=== PATIENT | male | born 1950 | race Caucasian/White ===

== ENCOUNTER 2017-02-15 07:47 | Observation (INO) | payer OTHER ==
[~2017-02-15] VITALS: Ht 175.3 cm; Wt 108.9 kg
--- NOTE | ~2017-02-15 | CATHLAB ---
[facility] [address] [place] [address] INVASIVE PROCEDURE REPORT Name: RACHELJHON Room #: 209-P [facility] IN ..#: [id number] Admission: 02/15/17 Attend Phys: Bruce Montesinos, Discharge: Date of : 54 Date of Service: 02/15/17 1704 Report #: [id number] THIS REPORT FOR: //name// APPROVED REPORT Patient Details Patient Status: Out-Patient Room #: The patient is a 66 year-old male Event Personnel Bruce Montesinos Electric Organ Checker, Anuja Cheng, Francia Aguero Penny, Wes RN, Josias Alaniz RN flanging roll operator Performed Art Access - R femoral artery* 91004 Initial Mod Sed Same Phys/QHP Gr5y [id number] 56599 Mod Sed Same Phys/QHP Ea 234914 Left Heart Cath w/or w/o Coronaries [id number] [facility] Place w/wo Plasty Single LAD 230524 Hemostasis w/ Mynx Procedure Narrative The patient was brought electively to the Cardiac Catheterization Laboratory and was prepped and draped in a sterile manner. The Right Groin^ was infiltrated with 1% Lidocaine subcutaneous anesthesia. A PINNACLE 6FR Sheath #[id number] sheath was inserted into the RFA^. Coronary angiography was performed using coronary diagnostic catheters. The right coronary system was accessed and visualized with a JR 4 catheter. The left coronary system was accessed and visualized with a JL 4 catheter. The left ventricle was accessed and visualized with a Pigtail catheter. Left ventricular/Aortic Valve gradient assessed via catheter pullback. Left ventriculogram was performed in [place] projection. Closure device was deployed with a 6 Fr Mynx. The patient tolerated the procedure well and there were no complications associated with the procedure. There was no hematoma. Intraoperative Conscious Sedation Sedation start time: 10:01 Case end Time: 10:45 Versed 1.5 mg Fluoro Time: 6.56 minutes Dose: DAP 9001.00 cGycm2 1078 mGy Contrast Type and Amount: Omnipaque 225 ml Coronary Angiography [address] [address] INVASIVE PROCEDURE REPORT Name: JHON RAMOS Room #: 209-P [facility].#: [id number] Admission: 02/15/17 Attend Phys: Bruce Montesinos, Discharge: Date of : 54 Date of Service: 02/15/17 1704 Report #: [id number] The patient's coronary anatomy is right dominant. Diagnostic Cath Left Main Normal LAD Mild proximal plaquing. Critical 99% mid LAD stenosis Diagonal 1 mild proximal plaquing Diagonal 2 small, mid-vessel arising. mild plaquing OM1 Large OM1, 30-40% proximal plaquing OM2 Moderate size, distally arising; minimal plaquing Right Coronary Large and dominant. Mild 20% distal plaquing R PDA Normal PDA RPLV Minimal proximal PLB plaquing Left Ventriculography The left ventricle is normal in size with normal contractility. The left ventricular ejection fraction is estimated to be 60-65%. Left ventricular wall motion abnormalities are not present. There is no mitral insufficiency. Hemodynamics The aortic pressure is 130/71 mmHg with a mean of 97 mmHg. The left ventricular pressure is 133/1 mmHg with a mean of mmHg. The left ventricular end diastolic pressure is 25 mmHg. PCI Technique Critical mid-LAD stenosis of 99%, initially pre-dilated, then stented with 3.0 x 15 Resolute medicated stent. Stent was post-dilated to 3.3mm with non-compliant balloon. 0% residual stenosis with BRENT III flow. Reproduced chest pain with balloon inflation PCI Technique Lesion Anticoagulation was achieved with Heparin, Integrilin. Patient was preloaded with Ticagrelor PO 180 mg. Percutaneous coronary intervention was performed on the mid left anterior descending artery segment. The lesion stenosis prior to intervention was 99% with BRENT 3 flow. A LAUNCHER 6FR EBU 3.5 #[id number] Guide Catheter was used to engage the Left Main ostium. A Luge Wire .014 x 182CM #[id number] Interventional Guidewire was used to cross the lesion. BALLOON DILATION A Balloon catheter Euphora RX 2.5 x 12 #[id number] was inserted and inflated up to 10.00atm for 25seconds. Repeat angiography revealed the following post-dilatation results: moderate residual post-PTCA stenosis. Additional Inflation: 8.00atm for 11seconds. Additional Inflation: 10.00atm for 23seconds. [facility] [address] [place] [address] INVASIVE PROCEDURE REPORT Name: JHON RAMOS Room #: 209-P [facility] IN M.R.#: [id number] Admission: 02/15/17 Attend Phys: Bruce Montesinos, Discharge: Date of : 54 Date of Service: 02/15/171703 Report #: [id number] STENT DEPLOYMENT A drug-eluting stent RESOLUTE RX 3.0 X 15 #[id number] was inserted and inflated up to 14.00atm for 34seconds. Repeat angiography revealed the following post-stent deployment results: 0% residual stenosis. POST STENT DEPLOYMENT BALLOON DILATION A Balloon catheter TREK NC RX 3.0 X 8 #[id number] was inserted and inflated up to 22.00atm for 30seconds. Additional Inflation: 22.00atm for 27seconds. Final angiography reveals 0 % stenosis with BRENT 3 flow. Conclusion 1. Normal global and regional systolic function. EF 65% 2. Normal left main 3. Critical 99% mid-LAD stenosis, successfully stented with 3.0 x 15 Resolute medicated stent, dilated to 3.3mm 4. Mild circumflex and RCA plaquing Recommendations Cardiac Rehabilitation Referral Aggressive Medical Therapy Medications Administered BRY Inhibitor (any) Aspirin (any) Statin (any) Ticagrelor Cardiac Rehabilitation Referral <ELECTRONICALLY SIGNED> By: Bruce Montesinos MD, [facility] 02/15/171703 03 03 Bruce Montesinos MD, [facility] /INF
--- NOTE | ~2017-02-15 | D ---
[facility] [place] [address] DISCHARGE SUMMARY Name: JHON RAMOS Room #: 209-P [facility] IN M.R.#: [id number] Admission: 02/15/17 Attend Phys: Bruce Montesinos MD, Discharge: 02/16/17 Date of : 54 Report #: [id number] THIS REPORT FOR: //name// CC: Bruce Mercado MD DISCHARGE DIAGNOSES: 1. Unstable angina. 2. Severe mid left anterior descending disease successfully stented with a 3.0 x 15 mm Resolute medicated stent. 3. Hypertension. 4. Dyslipidemia. 5. Diabetes. 6. Sleep apnea. HISTORY OF PRESENT ILLNESS: For the complete details of the history of present illness, see dictated history and physical. Briefly, the patient is a 66-year-old gentleman with longstanding diabetes and hypertension. He presented with midsternal chest tightness radiating to both arms, this originally occurred with activity, although for a day or 2 prior to presentation, this occurred at rest and was alleviated with sublingual nitroglycerin. Given the nature of his symptoms, which were highly suspicious for an unstable ischemic syndrome, he was admitted for coronary angiography. HOSPITAL COURSE: The patient was admitted and underwent coronary angiography. The details of this can be found under separate dictated summary, left ventricular systolic function was normal. There was very high grade mid LAD disease, which was successfully ballooned and stented with a 3.0 x 15 mm Resolute medicated stent, postdilated to 3.3 mm with a noncompliant balloon. He was treated with aspirin, Brilinta, heparin and Integrilin in the periprocedural setting. His post-procedural course was uneventful. He was ambulating with excellent groin hemostasis at the time of discharge. DISCHARGE MEDICATION: His discharge medicines were reconciled and included aspirin 81 mg daily, metformin 1000 mg twice daily, the metformin dose should be starting Saturday morning; lisinopril 20 mg twice daily, metoprolol succinate 50 mg daily, atorvastatin 40 mg daily and Brilinta 90 mg twice daily, dual antiplatelet course for 1 year. DISCHARGE DIET: Low fat, low cholesterol, prudent diabetic diet. DISCHARGE ACTIVITY: As instructed post-catheterization and stenting. Arrangements were made for outpatient cardiac rehabilitation. A fasting lipid profile will be arranged through [place] [address] DISCHARGE SUMMARY Name: JHON RAMOS Room #: 209-P [facility] IN .R.#: [id number] Admission: 02/15/17 Attend Phys: Bruce Montesinos MD, Discharge: 02/16/17 Date of : 54 Report #: [id number] DISCHARGE FOLLOWUP: With myself in 4-6 weeks, arrangements were made for outpatient cardiac rehabilitation. DISCHARGE CONDITION: Stable and improved. <ELECTRONICALLY SIGNED> By: Bruce Montesinos MD, [facility] 02/20/17 0811 1606 1807 Bruce Montesinos MD, FACC /nt
--- NOTE | ~2017-02-15 | EKG ---
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
--- NOTE | ~2017-02-15 | EKG ---
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
--- NOTE | ~2017-02-15 | EKG ---
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
[2017-02-15] MEDS ORDERED: ASPIR 8181 M1 PO (08:12)
[2017-02-15] MEDS ORDERED: ALL DAY ALLERGY10 M3 PO (08:13)
[2017-02-15] MEDS ORDERED: CHLOR-TABLET4 MG PO (08:14)
[2017-02-15] MEDS ORDERED: LISINOPRIL20 MG PO (08:15)
[2017-02-15] MEDS ORDERED: GLUCOPHAGE1000 MG PO (08:15)
[2017-02-15] MEDS ORDERED: UNICOMPLEX M TA1 TA1 PO ×2 (08:16→08:17)
[2017-02-15] MEDS ORDERED: [UNRECOGNIZED DRUG - OTHER] PO (08:16)
[2017-02-15] MEDS ORDERED: GLUCOSAMINE HC500 MG PO (08:17)
[2017-02-15] MEDS ORDERED: EYE DROP TEARS15 ML OPHTHALMIC (08:18)
[2017-02-15] MEDS ORDERED: PROBIOTIC1 EAC1 PO (08:18)
[2017-02-15] MEDS ORDERED: IBUPROFEN200 M1 PO (08:19)
[2017-02-15] MEDS ORDERED: TYLENOL EXTRA500 MG PO (08:19)
[2017-02-15] MEDS ORDERED: TOPROL XL100 MG PO (08:19)
[2017-02-15] MEDS ORDERED: NITROGLYCERIN0.4 MG PO (08:20)
[2017-02-15] MEDS ORDERED: IMDUR 60 MG TAB60 M1 PO (08:20)
[2017-02-15] MEDS ORDERED: ATORVASTATIN CA40 MG PO (08:20)
[2017-02-15 08:26] VITALS: BP 117/72
[2017-02-15] MEDS ORDERED: BRILINTA90 MG PO (14:08)
[2017-02-15 16:00] VITALS: BP 120/82
[2017-02-15 20:04] VITALS: BP 144/84
[2017-02-16 00:07] VITALS: BP 154/85
[2017-02-16 04:02] VITALS: BP 132/79
[2017-02-16 05:11] LABS: ANION GAP 11 mmol/L (7-16); BUN 13 mg/dL (7-18); CALCIUM 8.9 mg/dL (8.5-10.1); CHLORIDE 103 mmol/L (98-107); CHOLESTEROL 140 mg/dL (<200); CO2 24 mmol/L (21-32); CREATININE 1.1 mg/dL (0.7-1.3); GLUCOSE 162 mg/dL (74-106); HDL CHOLESTEROL 36 mg/dL (>40); LDL CHOLESTEROL 78 mg/dL (<100); POTASSIUM 3.9 mmol/L (3.5-5.1); SODIUM 138 mmol/L (136-145); TC:HDL 3.9 Ratio (Not establshd); TRIGLYCERIDE 132 mg/dL (<150); TROPONIN-I 0.23 ng/mL (<0.06); VLDL 26 mg/dL (<40)
[2017-02-16 05:14] LABS: SERUM ASSESSMENT Clear
[2017-02-16 08:08] VITALS: BP 140/88
[2017-02-16 12:05] VITALS: BP 133/82
[2017-02-16 12:42] VITALS: BP 140/88
== END 2017-02-16 14:58 | disposition home or self-care (01) ==
LOC: CATH 07:47 → 2N 15:09
PROVIDERS: Internal Medicine
DX: I25.110 Atherosclerotic heart disease of native coronary artery with unstable angina pectoris (principal); I10 Essential (primary) hypertension; E78.5 Hyperlipidemia, unspecified; E11.9 Type 2 diabetes mellitus without complications; G47.30 Sleep apnea, unspecified; I25.2 Old myocardial infarction; Z82.49 Family history of ischemic heart disease and other diseases of the circulatory system
CPT/HCPCS: 10081